=== PATIENT | male | born 1985 | race Two or more races ===

== ENCOUNTER 2017-12-09 23:46 | Emergency (ER) | payer OTHER ==
[~2017-12-09] VITALS: Ht 167.6 cm; Wt 72.6 kg
--- NOTE | 2017-12-10 02:13 | NUR ---
PT AMBULATED IN FROM THE LOBBY WITH A STEADY GAIT TO ER BED #14.
[2017-12-10] MEDS ORDERED: KETOROLAC TROMETHAMINE INJ 30 MG/ML VIAL IV ONE (03:00)
[2017-12-10] MEDS ORDERED: MORPHINE SULFATE INJ 2 MG/ML DISP.SYRIN IV ONE (03:00)
[2017-12-10] MEDS ORDERED: ONDANSETRON HCL/PF 4 MG/2 ML VIAL IVP ONE (03:00)
--- NOTE | 2017-12-10 03:09 | NUR ---
PT REFUSED MEDICATION AT THIS TIME. PT WANTS TO WAIT FOR CT RESULTS.
--- NOTE | 2017-12-10 03:09 | NUR ---
PT REFUSED IV. NOTIFIED. CARDIAC RN IS AT THE BEDSIDE.
--- NOTE | 2017-12-10 03:19 | NUR ---
PT LEFT FOR CT VIA WC.
--- NOTE | 2017-12-10 03:27 | NUR ---
PT RETURNED FROM CT VIA WC.
[2017-12-10 03:36] LABS: BASOPHILS % (AUTO) 0.2 % (0.0-2.0); EOSINOPHILS % (AUTO) 1.9 % (0.0-6.0); HEMATOCRIT 46 % (39-51); HEMOGLOBIN 15.9 g/dL (13.5-17.5); LYMPHOCYTES # (AUTO) 1.8 /CMM (0.8-4.8); MEAN CORPUSCULAR HGB CONC 35 g/dl (31.0-36.0); MEAN CORPUSCULAR VOLUME 90 fL (80-96); MONOCYTES # (AUTO) 0.5 /CMM (0.1-1.30); MONOCYTES % (AUTO) 4.8 % (2.0-12.0); NEUTROPHILS # (AUTO) 7.7 /CMM (1.8-8.9); NEUTROPHILS % (AUTO) 75.1 % (43.0-81.0); PLATELET COUNT (AUTO) 328 /CMM (150-450); RDW COEFFICIENT OF VARIATION 13.1 (11.5-15.0); WHITE BLOOD COUNT (AUTO) 10.3 K/uL (4.3-11.0)
[2017-12-10 03:54] LABS: ALBUMIN 4.5 g/dL (3.4-5.0); BILIRUBIN,DIRECT 0.2 mg/dL (0.0-0.2); BILIRUBIN,TOTAL 1.6 mg/dL (0.2-1.0); CALCIUM, SERUM 9.8 mg/dL (8.5-10.1); CREATININE 0.8 mg/dL (0.6-1.3); POTASSIUM 3.8 mmol/L (3.5-5.1); TOTAL PROTEIN, SERUM 7.7 g/dL (6.4-8.2)
--- NOTE | 2017-12-10 03:55 | NUR ---
PT APPEARS TO BE RESTING COMFORTABLY. PT STATED THAT HIS PAIN IS TOLERABLE AND DOES NOT WANT PAIN MEDICATION AT THIS TIME.
[2017-12-10 05:10] VITALS: BP 109/62
== END 2017-12-10 05:11 | disposition home or self-care (01) ==
LOC: ER 23:49
DX: N20.0 Calculus of kidney (principal)
CPT/HCPCS: 36415; 80048-TC; 80076-TC; 83690-TC; 85025-TC; 85730-TC; A4606; Z7610

== ENCOUNTER 2018-10-29 18:41 | Emergency (ER) | payer OTHER ==
[~2018-10-29] VITALS: Ht 167.6 cm; Wt 74.8 kg
[2018-10-29 19:17] VITALS: BP 126/82
== END 2018-10-29 20:27 | disposition home or self-care (01) ==
LOC: ER 18:44
DX: S20.212A Contusion of left front wall of thorax, initial encounter (principal); W18.39XA Other fall on same level, initial encounter; Y93.89 Activity, other specified; Y92.89 Other specified places as the place of occurrence of the external cause; Y99.8 Other external cause status
CPT/HCPCS: 71045-TC